=== PATIENT | male | born 1985 | race Caucasian/White ===

== ENCOUNTER 2023-03-24 19:09 | Outpatient (CLI) | payer BC, SELFPAY | END 2023-03-24 19:10 | disposition home or self-care (01) | LOC: NFLDUCREF 19:09 | PROVIDERS: Visit Provider Physician Assistant | DX: K13.79 Other lesions of oral mucosa (principal); J02.9 Acute pharyngitis, unspecified | CPT/HCPCS: 87070 ==

== ENCOUNTER 2023-09-01 13:28 | Outpatient (CLI) | payer OTHER, SELFPAY | END 2023-09-01 13:29 | disposition home or self-care (01) | PROVIDERS: PCP Family Medicine; Visit Provider Family Medicine | DX: J02.9 Acute pharyngitis, unspecified (principal); K13.79 Other lesions of oral mucosa; Z13.228 Encounter for screening for other metabolic disorders | CPT/HCPCS: 80053; 87070 ==